=== PATIENT | male | born 1940 | race Two or more races ===

== ENCOUNTER → 2022-05-04 11:07 | Outpatient (CLI) | payer OTHER | END | disposition home or self-care (01) | LOC: EDBD 11:07 → TOM 11:07 | PROVIDERS: ATTEND Surgery | DX: K59.00 Constipation, unspecified (principal) ==

== ENCOUNTER 2022-05-07 09:36 | Outpatient (CLI) | payer OTHER | END 2022-05-07 09:39 | disposition home or self-care (01) | LOC: RAD 09:36 | PROVIDERS: ATTEND Surgery | DX: K59.00 Constipation, unspecified (principal) ==